=== PATIENT | female | born 1965 | race African-American/Black ===

== ENCOUNTER 2016-12-09 12:23 | Day surgery (SDC) | payer MEDICARE, BC ==
[2016-12-01 13:22] LABS: HEMATOCRIT 35.2 % (36.0-48.0)
[2016-12-01 13:31] LABS: CALCIUM, SERUM 9.2 MG/DL (8.5-10.4); CHLORIDE, SERUM 108 MMOL/L (96-112); CO2 (CARBON DIOXIDE) 22 MMOL/L (24-34); CREATININE 1.03 MG/DL (0.55-1.02); GFR AFRICAN AMERICAN 73 ML/MIN (>=60); GFR NON AFRICAN AMERICAN 63 ML/MIN (>=60); POTASSIUM, SERUM 4.2 MMOL/L (3.5-5.3); SODIUM, SERUM 141 MMOL/L (135-148)
[2016-12-01 13:32] LABS: BUN (BLOOD UREA NITROGEN) 25 MG/DL (6-23); GLUCOSE, SERUM 131 MG/DL (60-99)
--- NOTE | ~2016-12-09 | OP ---
Record Of Operation [facility] [address] [place]. [address] NAME: YOLANDA QUEVEDO : 65 STATUS : [facility]#: [id number] AGE: 51 ADM/REG DATE : 12/09/16 MR#: [id number] REPORT SERV DATE: 12/09/16 DICTATED BY: AICHA SOLOMON DATE: 12/09/16 REPORT STATUS : Draft TRANSCRIBED BY: RADHA DATE: 12/09/16 DATE OF PROCEDURE: 12/09/2016 PREOPERATIVE DIAGNOSIS: Left carpal tunnel syndrome. POSTOPERATIVE DIAGNOSIS: Left carpal tunnel syndrome. PROCEDURES: Left carpal tunnel release. PHYSICIAN: Aicha Solomon M.D. BARREL RAISER HELPER: Eusebio Avalos. ANESTHESIA: Local MAC. ESTIMATED BLOOD LOSS: 1 mL. COMPLICATIONS: None. DISPOSITION: The patient tolerated the procedure well and was brought to recovery room in stable condition. PROCEDURE NOTE: The patient was brought to the operating room and placed in the supine position. After IV sedation was given, left upper extremity distal to the elbow was prepped and draped in the usual sterile manner. A surgical timeout was performed and all were in agreement. A solution containing one-half of 1% lidocaine plain and one-half of 0.5% Marcaine plain was injected in and about the skin overlying the carpal tunnel region(13 mL). Afterwards a rubber Esmarch was used to exsanguinate the hand and stopped just proximal to the wrist. This was used as a tourniquet and a 15-blade scalpel was then used to make a curved incision incorporating the thenar crease starting at the volar wrist crease and directed distally. After the skin was incised, the palmar fascia was identified and incised along the length of its fibers to reveal the underlying transverse carpal ligament. The entire transverse carpal ligament from its most proximal to its most distal border was then incised just radial to the hook of the hamate and in doing so, the median nerve and the rest of the contents of the carpal tunnel were decompressed. The wound was irrigated and the skin was closed with deep and running 4-0 Monocryl suture. Steri-Strips, sterile dressing was applied after the tourniquet was released. The patient tolerated the procedure well and was ready to be brought to the recovery room in stable condition. DANIEL/RADHA Aicha Solomon M.D. Record Of Operation [address] [address] NAME: YOLANDA QUEVEDO : 65 STATUS : [facility] PAT#: [id number] AGE: 51 ADM/REG DATE : 12/09/16 MR#: [id number] REPORT SERV DATE: 12/09/16 DICTATED BY: AICHA SOLOMON DATE: 12/09/16 REPORT STATUS : Draft TRANSCRIBED BY: RADHA DATE: 12/09/16 / [id number] CC: Chelsea Brown M.D.
[~2016-12-09 12:23] MED LIST: ACET500CAP PO; ADALAT CC30 MG PO; AMB5 PO; AVAP150 PO; BAC PO; CALTRA600D PO; CALTRATE PO; CELLCEPT5 PO; CLEOCIN300 MG PO; DITRO5 PO; DSS PO; ENULOSE PO; FLONASE NAS; FLOVENT220 INH; FOLIC PO; FOSRENOL PO; HYDROMET1 ML PO; JOLIVETTE0.35 MG PO; LEVAQUIN750 MG PO; LOP25 PO; MEGACEUDL PO; NASONEX NAS; NEXIUM40 PO; NORV10 PO; P5 PO; PENTOXIL400 MG PO; PR12.5 PO; PR25 PO; PRAVAC PO; PRILO PO; PROAMAT5 PO; PROCRIT10 SC; PROGRAF1 PO; RENAL SFTGLS1 MG OR; ROCALTROL0.25 MCG OR; ROXICODONE15 MG PO; SENSIPAR60 MG OR; SENSIPAR90 MG OR; SUCR PO; TRENTAL400 PO; VALCYTE PO; VENTOLIN HFA INH; VIT PO; VITAMIN D31000 UNIT PO; VITC500 PO; ZANTAC300 MG PO; ZOLOFT25 MG PO; [UNRECOGNIZED DRUG - MIXTURE] PO; [UNRECOGNIZED DRUG - OTHER] PO; [UNRECOGNIZED DRUG - OTHER] PO
[2017-05-05] MEDS ORDERED: MYFORTIC360 MG PO (08:59)
[2017-05-05] MEDS ORDERED: VITD PO (09:01)
[2017-05-05] MEDS ORDERED: VAGIFEM10 MCG V (09:05)
[2017-05-09] MEDS ORDERED: PERCOCET 7.5/321 TAB PO (08:09)
== END 2016-12-09 16:58 | disposition home or self-care (01) ==
LOC: SDC 12:23
PROVIDERS: Orthopaedic Surgery Hand Surgery
PROC: 01N50ZZ Release Median Nerve, Open Approach (ICD-10-PCS; principal; 2016-12-09 14:00)
DX: G56.02 Carpal tunnel syndrome, left upper limb (principal); I12.0 Hypertensive chronic kidney disease with stage 5 chronic kidney disease or end stage renal disease; N18.6 End stage renal disease; K21.9 Gastro-esophageal reflux disease without esophagitis; J45.909 Unspecified asthma, uncomplicated; D63.1 Anemia in chronic kidney disease; Z94.0 Kidney transplant status; Z88.0 Allergy status to penicillin; Z88.8 Allergy status to other drugs, medicaments and biological substances; Z98.890 Other specified postprocedural states
CPT/HCPCS: 80048; 85014; 85018; 93005; J0690; J2250